=== PATIENT | male | born 1945 | race Caucasian/White ===

== ENCOUNTER 2020-01-23 09:18 | Emergency (ER) | payer MEDICARE, MEDICAID ==
[~2020-01-23] VITALS: Ht 170.2 cm; Wt 86.6 kg
[~2020-01-23 09:18] MED LIST: CELE200C PO; CLON0.2T PO; LISI10TA5 PO; PANT40TA49 PO
--- NOTE | 2020-01-23 09:42 | NUR ---
ELSY LUI C/O BACK PAIN 11/02. PT STATES THAT HE USUALLY TAKES [employer]CO FOR HIS BACK PAIN WHICH HAS BEEN CHRONIC BUT THAT 'IT GOT TO A POINT THAT THE NORCO DOESNT WORK'. PT ALSO REPORTS THAT HE FELL ABOUT A WEEK AGO AND STATES THAT THE FALL JUST AGGRAVATED HIS BACK PAIN OVER THE PAST WEEK. Addendum: 01/23/20 at 0943 by ANIVAL PT AWAITING TO BE SEEN BY
[2020-01-23] MEDS: IBUPROFEN 600 MG TABLET PO ONE (10:14)
[2020-01-23] MEDS ORDERED: IBUPROFEN 600 MG TABLET ONE (10:14)
[2020-01-23] MEDS ORDERED: oxyCODONE/APAP (5/325 MG) 1 UDTAB TABLET ONE (10:14)
[2020-01-23] MEDS: oxyCODONE/APAP (5/325 MG) 1 UDTAB TABLET PO ONE (10:15)
--- NOTE | 2020-01-23 10:30 | NUR ---
PT BACK FROM CT
--- NOTE | 2020-01-23 11:57 | NUR ---
CALLED TRANSPORT AM ETA 30 MINS PER IAN
[2020-01-23 12:23] VITALS: BP 128/82
--- NOTE | 2020-01-23 12:39 | NUR ---
Patient discharged to home in stable condition. Written and verbal after care instructions given. Patient verbalizes understanding of instruction. pt got picked up by [facility] ambulance with 2 manufacturing industrial engineer, pt will be going back to his apartment
== END 2020-01-23 12:40 | disposition home or self-care (01) ==
LOC: ER 09:20
DX: M54.5 Low back pain (principal); G89.29 Other chronic pain; I10 Essential (primary) hypertension; Z60.2 Problems related to living alone; Z98.890 Other specified postprocedural states; Z79.899 Other long term (current) drug therapy
CPT/HCPCS: 72100-TC; 73502